=== PATIENT | male | born 1980 | race Two or more races ===

== ENCOUNTER 2019-11-30 15:24 | Emergency (ER) | payer MEDICAID ==
[~2019-11-30] VITALS: Ht 180.3 cm; Wt 99.8 kg
[2019-11-30 19:16] VITALS: BP 113/70
[2019-11-30] MEDS ORDERED: ACETAMINOPHEN/CODEINE#3 (300/30mg) TAB PO ONE (19:30)
[2019-11-30] MEDS ORDERED: DexAMETHasone SOD PHOS 10MG/1ML VIAL INJ IM ONE (19:30)
== END 2019-11-30 19:55 | disposition home or self-care (01) ==
LOC: ER 15:24
DX: J06.9 Acute upper respiratory infection, unspecified (principal)
CPT/HCPCS: 96372; 99283; J1100

== ENCOUNTER 2020-05-09 10:47 | Emergency (ER) | payer MEDICAID ==
[~2020-05-09] VITALS: Ht 180.3 cm; Wt 99.8 kg
[2020-05-09 10:50] VITALS: BP 122/73
== END 2020-05-09 12:34 | disposition home or self-care (01) ==
LOC: ER 10:47
DX: G89.29 Other chronic pain (principal); M25.561 Pain in right knee; M25.562 Pain in left knee

== ENCOUNTER 2021-05-31 19:44 | Emergency (ER) | payer OTHER ==
[~2021-05-31] VITALS: Ht 180.3 cm; Wt 99.8 kg
[2021-05-31] MEDS ORDERED: IOHEXOL 300 MG/ML 100ML BOTTLE IJ ONE (22:29)
[2021-06-01 05:10] VITALS: BP 131/77
== END 2021-06-01 05:40 | disposition home or self-care (01) ==
LOC: ER 19:44
DX: S63.502A Unspecified sprain of left wrist, initial encounter (principal); R07.89 Other chest pain; M54.2 Cervicalgia; M54.9 Dorsalgia, unspecified; R07.81 Pleurodynia; R51.9 Headache, unspecified; V49.9XXA Car occupant (driver) (passenger) injured in unspecified traffic accident, initial encounter; Y93.89 Activity, other specified; Y92.89 Other specified places as the place of occurrence of the external cause; Y99.8 Other external cause status
CPT/HCPCS: 36415; 70450; 71260; 72125; 73110; 74177; 80320; 99285; Q9967

== ENCOUNTER 2021-06-16 11:24 | Emergency (ER) | payer OTHER ==
[~2021-06-16] VITALS: Ht 180.3 cm; Wt 101.2 kg
[2021-06-16 11:33] VITALS: BP 139/68
[2021-06-16] MEDS ORDERED: METHOCARBAMOL 500 MG TAB PO ONE (11:45)
[2021-06-16] MEDS ORDERED: IBUPROFEN 600 MG TAB PO ONE (11:45)
== END 2021-06-16 13:22 | disposition home or self-care (01) ==
LOC: ER 11:24
DX: S06.0X0A Concussion without loss of consciousness, initial encounter (principal); S06.2X0A Diffuse traumatic brain injury without loss of consciousness, initial encounter; S09.8XXA Other specified injuries of head, initial encounter; R51.9 Headache, unspecified; Y04.8XXA Assault by other bodily force, initial encounter; Y93.89 Activity, other specified; Y92.89 Other specified places as the place of occurrence of the external cause; Y99.8 Other external cause status
CPT/HCPCS: 70450